=== PATIENT | female | born 1975 | race Caucasian/White ===

== ENCOUNTER → 2017-01-26 | Outpatient (CLI) | payer OTHER ==
[~2017-01-26] MED LIST: CHOL200024 PO; ESCI20TA10 PO; GABA300C10 PO; HYDR-3240 PO; HYDR-3241 PO; MULT-224 PO; NAPR500T4 PO; PROTONIX; SIMV20TA3 PO; SIMV80TA3; VARE1TAB21 PO
[2017-01-26 15:19] LABS: HEMOGLOBIN 15.4 g/dL (11.7-16.4); WHITE BLOOD COUNT 11.1 x10^3/uL (3.4-10)
[2017-01-26 15:27] LABS: BLOOD UREA NITROGEN 12 mg/dL (7-18)
[2017-01-26 15:31] LABS: ASPARTATE AMINO TRANSFERASE 10 U/L (15-37)
== END ==
LOC: STAR 14:24
PROVIDERS: ATTEND Specialist
DX: Z01.818 Encounter for other preprocedural examination (principal)
CPT/HCPCS: 36415; 80053; 84703; 85025; 85610; 85730

== ENCOUNTER 2017-01-31 06:51 | Day surgery (SDC) | payer OTHER ==
[2017-01-26 14:49] VITALS: BP 124/80
[~2017-01-31] VITALS: Ht 162.6 cm; Wt 102.7 kg
[2017-01-31] MEDS ORDERED: LACTATED RINGERS 1,000 ML IV SCH (07:05)
[2017-01-31 07:06] VITALS: BP 124/80
[2017-01-31] MEDS ORDERED: LIDOCAINE 1%, 2ML ONE (07:11)
[2017-01-31] MEDS ORDERED: MIDAZOLAM 1 MG/ML, 2ML ONE ×2 (07:18→07:36)
[2017-01-31] MEDS ORDERED: FENTANYL PF 100 MCG/2ML ONE ×3 (07:18→08:50)
[2017-01-31] MEDS ORDERED: PROPOFOL 10 MG/ML, 20ML ONE ×2 (07:19→07:36)
[2017-01-31] MEDS ORDERED: CEFAZOLIN 1,000 MG ONE ×3 (07:20→07:36)
[2017-01-31] MEDS ORDERED: SODIUM CHLORIDE 0.9% PF 10ML ONE (07:20)
[2017-01-31] MEDS ORDERED: PHENYLEPHRINE 10 MG/ML ONE (07:22)
[2017-01-31] MEDS ORDERED: DEXAMETHASONE 4 MG/ML, 1ML ONE ×2 (07:22)
[2017-01-31] MEDS ORDERED: ONDANSETRON 2MG/ML, 2ML ONE ×3 (07:22→07:36)
[2017-01-31 07:29] LABS: HCG UR LOT HCG7030192
[2017-01-31] MEDS ORDERED: LIDOCAINE 1%, 2ML SQ PRN (07:30)
[2017-01-31] MEDS ORDERED: KETOROLAC 30 MG/1 ML ONE ×2 (07:36→07:53)
[2017-01-31] MEDS ORDERED: HYDROmorphone 1 MG/ML, 1ML ONE ×2 (07:36→08:03)
[2017-01-31] MEDS ORDERED: KETAMINE 10 MG/ML, 20ML ONE ×2 (07:36→07:49)
[2017-01-31 07:39] LABS: HCG UR OBC PASS
[2017-01-31] MEDS ORDERED: BUPIVACAINE/PF-EPI 0.25% 1:200K INFIL ONE (08:15)
[2017-01-31] MEDS ORDERED: ACETAMINOPHEN 325 MG TABLET PO PRN (08:30)
[2017-01-31] MEDS ORDERED: hydrALAzine 20 MG/ML, 1ML IV PRN (08:30)
[2017-01-31] MEDS ORDERED: ALBUTEROL SULFATE 2.5 MG/3 ML NPPB PRN (08:30)
[2017-01-31] MEDS ORDERED: LABETALOL 5MG/ML, 20ML IV PRN (08:30)
[2017-01-31] MEDS ORDERED: HYDROmorphone 1 MG/ML, 1ML IV PRN (08:30)
[2017-01-31] MEDS ORDERED: LORazepam 2 MG/ML, 1ML IVPush PRN (08:30)
[2017-01-31] MEDS ORDERED: MEPERIDINE/PF 25MG/0.5ML IVPush PRN (08:30)
[2017-01-31] MEDS ORDERED: OXYcodone 5 MG/5 ML ORAL.SOL UDC PO PRN (08:30)
[2017-01-31] MEDS ORDERED: PROMETHAZINE 25 MG/ML, 1ML IV PRN (08:30)
[2017-01-31] MEDS ORDERED: FENTANYL PF 100 MCG/2ML IV PRN (08:30)
[2017-01-31] MEDS ORDERED: ONDANSETRON 2MG/ML, 2ML IVPush PRN (08:30)
[2017-01-31] MEDS ORDERED: BUPIVACAINE/PF 0.25% ONE (08:41)
[2017-01-31] MEDS ORDERED: ACETAMINOPHEN 650 MG/20.3 ML UDC ONE (08:50)
[2017-01-31] MEDS ORDERED: OXYcodone 5 MG/5 ML ORAL.SOL UDC ONE (08:51)
== END 2017-01-31 10:25 ==
LOC: OUT 06:51
PROVIDERS: ATTEND Specialist
DX: D07.2 Carcinoma in situ of vagina (principal); D06.9 Carcinoma in situ of cervix, unspecified; G43.909 Migraine, unspecified, not intractable, without status migrainosus
CPT/HCPCS: 36415; 56620; 57520; 81025; 86850; 86900; 88305; J0690; J1100; J1170; J1885; J2250; J2370; J2405; J2704; J3010; J3490; J7120

== ENCOUNTER → 2017-06-15 | Outpatient (CLI) | payer OTHER ==
[~2017-06-15] MED LIST changes: +NAPR-685 PO; -NAPR500T4 PO
== END | disposition home or self-care (01) ==
LOC: RAD 08:43
PROVIDERS: ATTEND Nurse Practitioner Primary Care
DX: R10.9 Unspecified abdominal pain (principal); R53.83 Other fatigue; E55.9 Vitamin D deficiency, unspecified; R79.9 Abnormal finding of blood chemistry, unspecified; F06.31 Mood disorder due to known physiological condition with depressive features; J06.0 Acute laryngopharyngitis; R42 Dizziness and giddiness; R20.2 Paresthesia of skin; K21.9 Gastro-esophageal reflux disease without esophagitis; Z79.899 Other long term (current) drug therapy; Z90.49 Acquired absence of other specified parts of digestive tract; Z72.0 Tobacco use
CPT/HCPCS: 76700

== ENCOUNTER 2018-09-07 07:14 | Outpatient (CLI) | payer OTHER ==
[~2018-09-07 07:14] MED LIST changes: -MULT-224 PO; +MULT-642 PO; +SIMV80TA18; -SIMV80TA3
[2018-09-07 07:42] LABS: BASOPHILS # (AUTO) 0.02 x10^3/uL (0-0.1); BASOPHILS % (AUTO) 0 % (0-1); EOSINOPHILS # (AUTO) 0.02 x10^3/uL (0-0.4); EOSINOPHILS % (AUTO) 0 % (1-7); LYMPHOCYTES # (AUTO) 1.66 x10^3/uL (1-3.4); LYMPHOCYTES % (AUTO) 17 % (22-44); MD NO; MEAN CORPUSCULAR HEMOGLOBIN 32.6 pg (27.0-34.8); MEAN CORPUSCULAR HGB CONC 33.2 g/dL (32.4-35.8); MEAN CORPUSCULAR VOLUME 98.1 fL (80-100); MEAN PLATELET VOLUME 9.1 fL (7.4-10.4); MONOCYTES # (AUTO) 0.39 x10^3/uL (0.2-0.8); MONOCYTES % (AUTO) 4 % (2-9); NEUTROPHILS # (AUTO) 7.55 x10^3/uL (1.8-6.8); NEUTROPHILS % (AUTO) 78 % (42-75); PLATELET COUNT 195 x10^3/uL (130-400); RED BLOOD COUNT 4.93 x10^6/uL (3.82-5.3); RED CELL DISTRIBUTION WIDTH 13.1 % (9.6-15.2)
[2018-09-07 07:50] LABS: MICROSCOPIC INDICATED
[2018-09-07 07:51] LABS: CULTURE INDICATED? YES
[2018-09-07 07:56] LABS: ANION GAP 8 mmol/L (5-15); CALCIUM 9.2 mg/dL (8.5-10.1); CHLORIDE 110 mmol/L (98-107); CHOLESTEROL, TOTAL 261 mg/dL (140-239); TRIGLYCERIDES 105 mg/dL (50-200); VLDL CHOLESTEROL 21 mg/dL (0-25)
[2018-09-07 07:59] LABS: HEMOGLOBIN A1C 5.2 % (4.2-6.3)
[2018-09-07 08:22] LABS: ALANINE AMINOTRANSFERASE 20 U/L (12-78); ALKALINE PHOSPHATASE 112 U/L (45-117); BILIRUBIN,TOTAL 0.6 mg/dL (0.2-1.0); CHOL/HDL RATIO 5.9; CREATININE 0.84 mg/dL (0.55-1.02); FOLATE LEVEL 16.9 ng/mL (3.1-17.5); FREE T4 (FREE THYROXINE) 0.97 ng/dL (0.76-1.46); HDL CHOL % 17 % (28-40); HDL CHOLESTEROL (DIRECT) 44 mg/dL (40-60); LDL CHOLESTEROL,CALCULATED 196 mg/dL (54-169); LDL/HDL RATIO 4.5 (0.5-3.0); TOTAL PROTEIN 7.8 g/dL (6.4-8.2)
== END 2018-09-07 23:59 | disposition home or self-care (01) ==
LOC: LAB 07:14
PROVIDERS: ATTEND Nurse Practitioner Primary Care
DX: Z13.220 Encounter for screening for lipoid disorders (principal); E78.5 Hyperlipidemia, unspecified; E55.9 Vitamin D deficiency, unspecified; R53.83 Other fatigue; R79.9 Abnormal finding of blood chemistry, unspecified; F06.31 Mood disorder due to known physiological condition with depressive features; Z72.0 Tobacco use; Z79.899 Other long term (current) drug therapy
CPT/HCPCS: 36415; 80053; 80061; 81001; 82306; 82607; 82746; 83036; 84207; 84425; 84439; 84443; 84481; 85025; 86376; 86800; 87077; 87086; 87186

== ENCOUNTER 2019-02-09 07:25 | Outpatient (CLI) | payer OTHER ==
[2019-02-09 08:00] LABS: MICROSCOPIC NOT IND
[2019-02-09 08:02] LABS: ALBUMIN 3.6 g/dL (3.4-5.0); ANION GAP 1 mmol/L (5-15); CALCIUM 8.7 mg/dL (8.5-10.1); CHLORIDE 110 mmol/L (98-107)
[2019-02-09 08:04] LABS: CULTURE INDICATED? NO
[2019-02-09 08:28] LABS: ALANINE AMINOTRANSFERASE 27 U/L (12-78); ALKALINE PHOSPHATASE 97 U/L (45-117); BILIRUBIN,TOTAL 0.4 mg/dL (0.2-1.0); CHOL/HDL RATIO 3.9; CHOLESTEROL, TOTAL 167 mg/dL (140-239); CREATININE 0.72 mg/dL (0.55-1.02); FOLATE LEVEL 16.3 ng/mL (3.1-17.5); HDL CHOL % 26 % (28-40); HDL CHOLESTEROL (DIRECT) 43 mg/dL (40-60); LDL CHOLESTEROL,CALCULATED 104 mg/dL (54-169); LDL/HDL RATIO 2.4 (0.5-3.0); TOTAL PROTEIN 7.1 g/dL (6.4-8.2); TRIGLYCERIDES 98 mg/dL (50-200); VLDL CHOLESTEROL 20 mg/dL (0-25)
== END 2019-02-09 23:59 | disposition home or self-care (01) ==
LOC: LAB 07:25
PROVIDERS: ATTEND Nurse Practitioner Primary Care
DX: R53.83 Other fatigue (principal); E55.9 Vitamin D deficiency, unspecified; E78.5 Hyperlipidemia, unspecified; R79.9 Abnormal finding of blood chemistry, unspecified; F06.31 Mood disorder due to known physiological condition with depressive features; Z79.899 Other long term (current) drug therapy
CPT/HCPCS: 36415; 80053; 80061; 81003; 82306; 82607; 82746; 84207; 84425

== ENCOUNTER 2019-03-30 15:44 | Observation (INO) | payer OTHER ==
[~2019-03-30] VITALS: Ht 162.6 cm; Wt 84.3 kg
[~2019-03-30 15:44] MED LIST changes: +SIMV20TA19 PO; -SIMV20TA3 PO
--- NOTE | 2019-03-30 16:28 | NUR ---
PT HAS CO DIZZYNES AND MIGRAINE THAT STARTED LAST NIGHT. PT DENIES ANY NEW STRESS. DENIES, CP, SOB, NO N/V/D. NOT IT ANY DITRESS. WAITING FOR FURTHER ORDERS.
[2019-03-30] MEDS ORDERED: DIPHENHYDRAMINE 50 MG/ML, 1ML ONE (17:15)
[2019-03-30] MEDS ORDERED: METOCLOPRAMIDE 5 MG/ML, 2ML ONE (17:16)
[2019-03-30] MEDS ORDERED: DIPHENHYDRAMINE 50 MG/ML, 1ML IVPush ONE (17:30)
[2019-03-30] MEDS ORDERED: METOCLOPRAMIDE 5 MG/ML, 2ML IVPush ONE (17:30)
[2019-03-30 17:36] LABS: BASOPHILS # (AUTO) 0.02 x10^3/uL (0-0.1); BASOPHILS % (AUTO) 0 % (0-1); EOSINOPHILS # (AUTO) 0.17 x10^3/uL (0-0.4); EOSINOPHILS % (AUTO) 2 % (1-7); LYMPHOCYTES # (AUTO) 3.15 x10^3/uL (1-3.4); LYMPHOCYTES % (AUTO) 32 % (22-44); MD NO; MEAN CORPUSCULAR HEMOGLOBIN 32.9 pg (27.0-34.8); MEAN CORPUSCULAR VOLUME 96.6 fL (80-100); MEAN PLATELET VOLUME 9.4 fL (7.4-10.4); MONOCYTES # (AUTO) 0.52 x10^3/uL (0.2-0.8); MONOCYTES % (AUTO) 5 % (2-9); NEUTROPHILS # (AUTO) 6.02 x10^3/uL (1.8-6.8); NEUTROPHILS % (AUTO) 61 % (42-75); PLATELET COUNT 208 x10^3/uL (130-400); RED BLOOD COUNT 4.63 x10^6/uL (3.82-5.3); RED CELL DISTRIBUTION WIDTH 13.5 % (9.6-15.2)
[2019-03-30 17:45] LABS: ALBUMIN 3.9 g/dL (3.4-5.0); ANION GAP 5 mmol/L (5-15); CALCIUM 9.2 mg/dL (8.5-10.1); CHLORIDE 108 mmol/L (98-107)
[2019-03-30 17:50] LABS: ALANINE AMINOTRANSFERASE 21 U/L (12-78); ALKALINE PHOSPHATASE 108 U/L (45-117); BILIRUBIN,TOTAL 0.5 mg/dL (0.2-1.0); CREATININE 0.74 mg/dL (0.55-1.02); TOTAL PROTEIN 7.4 g/dL (6.4-8.2); TROPONIN I < 0.015 ng/mL (0.000-0.045)
--- NOTE | 2019-03-30 18:10 | NUR ---
PT BACK FROM IMAGING.
--- NOTE | 2019-03-30 19:00 | NUR ---
AT BEDSIDE DISCUSSING POC FOR ADMIT. PT WAS REQUESTING TO WALK OUTSIDE TO SMOKE, PT EDUCATED THAT PT ARE NOT ALLOWED TO LEAVE THE ED W IV IN PLACE. PT AGREES. VS STABLE. NO NEEDS AT THIS TIME
--- NOTE | 2019-03-30 19:52 | NUR ---
REPORT TO YAZ
--- NOTE | 2019-03-30 20:54 | NUR ---
PT BEING TRANSFERRED TO FLOOR. VS STABLE.
[2019-03-30 21:20] VITALS: BP 105/65
[2019-03-30 21:38] VITALS: BP 105/65
[2019-03-30] MEDS: SODIUM CHLORIDE 0.9% 1,000 ML IV SCH (21:38)
[2019-03-30] MEDS ORDERED: POLYETHYLENE GLYCOL 17 GM PACKET PO PRN (22:00)
[2019-03-30] MEDS ORDERED: ACETAMINOPHEN 325 MG TABLET PO PRN (22:00)
[2019-03-30] MEDS ORDERED: HYDROcodone/APAP 5/325 TABLET PO PRN (22:00)
[2019-03-30] MEDS ORDERED: PROMETHAZINE 25 MG/ML, 1ML IM PRN (22:00)
[2019-03-30] MEDS ORDERED: DOCUSATE 100 MG CAPSULE PO PRN (22:00)
[2019-03-30] MEDS ORDERED: ASA/APAP/ CAFFEINE TABLET PO PRN (22:00)
[2019-03-30] MEDS ORDERED: morphine SULFATE 10 MG/ML, 1ML IVPush PRN (22:00)
[2019-03-30] MEDS ORDERED: hydrALAzine 20 MG/ML, 1ML IVPush PRN (22:00)
[2019-03-30] MEDS ORDERED: ONDANSETRON 2MG/ML, 2ML IVPush PRN (22:00)
[2019-03-30] MEDS ORDERED: BISACODYL 10 MG SUPP PR PRN (22:00)
[2019-03-30] MEDS ORDERED: ONDANSETRON ODT 4 MG PO PRN (22:00)
[2019-03-30 22:13] LABS: FREE T4 (FREE THYROXINE) 0.97 ng/dL (0.76-1.46)
[2019-03-30] MEDS: HEPARIN 5,000 UNITS/ML, 1ML SQ SCH (22:28)
[2019-03-30] MEDS: ASPIRIN 325 MG TABLET EC PO SCH (22:29)
[2019-03-30] MEDS ORDERED: SIMVASTATIN 20 MG TABLET PO SCH (22:30)
[2019-03-30] MEDS ORDERED: NICOTINE 14MG/24 HR PATCH.TD24 TD SCH (23:00)
[2019-03-31 01:00] VITALS: BP 102/60
[2019-03-31 03:59] LABS: MICROSCOPIC NOT IND
[2019-03-31 04:03] LABS: CULTURE INDICATED? NO
[2019-03-31 05:16] LABS: BASOPHILS # (AUTO) 0.04 x10^3/uL (0-0.1); BASOPHILS % (AUTO) 1 % (0-1); EOSINOPHILS # (AUTO) 0.15 x10^3/uL (0-0.4); EOSINOPHILS % (AUTO) 2 % (1-7); LYMPHOCYTES # (AUTO) 3.24 x10^3/uL (1-3.4); LYMPHOCYTES % (AUTO) 35 % (22-44); MD NO; MEAN CORPUSCULAR HEMOGLOBIN 32.9 pg (27.0-34.8); MEAN CORPUSCULAR HGB CONC 33.5 g/dL (32.4-35.8); MEAN PLATELET VOLUME 9.9 fL (7.4-10.4); MONOCYTES # (AUTO) 0.71 x10^3/uL (0.2-0.8); MONOCYTES % (AUTO) 8 % (2-9); NEUTROPHILS # (AUTO) 5.15 x10^3/uL (1.8-6.8); NEUTROPHILS % (AUTO) 55 % (42-75); PLATELET COUNT 187 x10^3/uL (130-400); RED BLOOD COUNT 4.26 x10^6/uL (3.82-5.3); RED CELL DISTRIBUTION WIDTH 13.2 % (9.6-15.2)
[2019-03-31 05:24] LABS: ALBUMIN 3.2 g/dL (3.4-5.0); CHLORIDE 112 mmol/L (98-107)
[2019-03-31 05:30] LABS: ALANINE AMINOTRANSFERASE 17 U/L (12-78); ALKALINE PHOSPHATASE 90 U/L (45-117); ANION GAP 4 mmol/L (5-15); BILIRUBIN,TOTAL 0.2 mg/dL (0.2-1.0); CALCIUM 8.3 mg/dL (8.5-10.1); CHOL/HDL RATIO 5.6; CHOLESTEROL, TOTAL 202 mg/dL (140-239); CREATININE 0.63 mg/dL (0.55-1.02); HDL CHOL % 18 % (28-40); HDL CHOLESTEROL (DIRECT) 36 mg/dL (40-60); LDL CHOLESTEROL,CALCULATED 136 mg/dL (54-169); LDL/HDL RATIO 3.8 (0.5-3.0); TOTAL PROTEIN 6.1 g/dL (6.4-8.2); TRIGLYCERIDES 152 mg/dL (50-200); VLDL CHOLESTEROL 30 mg/dL (0-25)
[2019-03-31] MEDS: ASPIRIN 325 MG TABLET EC PO SCH (05:41)
[2019-03-31] MEDS: HEPARIN 5,000 UNITS/ML, 1ML SQ SCH ×2 (05:41→14:01)
[2019-03-31] MEDS: GABAPENTIN 300 MG CAPSULE PO SCH ×2 (07:39→15:25)
[2019-03-31] MEDS: SODIUM CHLORIDE 0.9% 1,000 ML IV SCH (07:39)
[2019-03-31 07:54] VITALS: BP 101/69
[2019-03-31] MEDS ORDERED: MULTIVITAMIN 1 TABLET PO SCH (09:00)
[2019-03-31] MEDS ORDERED: CHOLECALCIFEROL 1,000 UNIT TABLET PO SCH (09:00)
[2019-03-31] MEDS ORDERED: ESCITALOPRAM 10MG TABLET PO SCH (09:00)
[2019-03-31 14:08] VITALS: BP 90/60
[2019-03-31] MEDS ORDERED: ASPI1TAB61 PO (15:28)
[2019-03-31] MEDS ORDERED: ASPI-515 PO (15:28)
[2019-03-31] MEDS ORDERED: NICO-486 TD (15:28)
== END 2019-03-31 16:33 | disposition home or self-care (01) ==
LOC: ED 19:21 → EDIP 19:25 → INTOOBSV 19:25 → 4WST 21:01
PROVIDERS: ADMIT Internal Medicine; ATTEND Internal Medicine
DX: G45.9 Transient cerebral ischemic attack, unspecified (principal); E78.5 Hyperlipidemia, unspecified; F32.9 Major depressive disorder, single episode, unspecified; G43.909 Migraine, unspecified, not intractable, without status migrainosus; R42 Dizziness and giddiness; F17.200 Nicotine dependence, unspecified, uncomplicated; E78.00 Pure hypercholesterolemia, unspecified; Z79.899 Other long term (current) drug therapy; Z86.008 Personal history of in-situ neoplasm of other site
CPT/HCPCS: 36415; 70551; 80053; 80061; 81003; 82962; 83036; 83735; 84439; 84443; 84484; 85025; 92610; 93005; 93306; 93880; 96361; 96372; 96374; 96375; 97162; 97165; 99284; G0378; J1200; J1644; J2765; J7030; 99285

== ENCOUNTER 2019-04-24 07:09 | Outpatient (CLI) | payer OTHER ==
[~2019-04-24 07:09] MED LIST changes: +ASPI-515 PO; +ASPI1TAB61 PO; +NICO-486 TD
[2019-04-24 07:28] LABS: BASOPHILS # (AUTO) 0.03 x10^3/uL (0-0.1); BASOPHILS % (AUTO) 0 % (0-1); EOSINOPHILS # (AUTO) 0.08 x10^3/uL (0-0.4); EOSINOPHILS % (AUTO) 1 % (1-7); LYMPHOCYTES # (AUTO) 2.26 x10^3/uL (1-3.4); LYMPHOCYTES % (AUTO) 24 % (22-44); MD NO; MEAN CORPUSCULAR HEMOGLOBIN 32.7 pg (27.0-34.8); MEAN CORPUSCULAR HGB CONC 33.2 g/dL (32.4-35.8); MEAN CORPUSCULAR VOLUME 98.3 fL (80-100); MEAN PLATELET VOLUME 9.1 fL (7.4-10.4); MONOCYTES # (AUTO) 0.34 x10^3/uL (0.2-0.8); MONOCYTES % (AUTO) 4 % (2-9); NEUTROPHILS # (AUTO) 6.91 x10^3/uL (1.8-6.8); NEUTROPHILS % (AUTO) 72 % (42-75); PLATELET COUNT 221 x10^3/uL (130-400); RED BLOOD COUNT 4.77 x10^6/uL (3.82-5.3); RED CELL DISTRIBUTION WIDTH 13.4 % (9.6-15.2)
[2019-04-24 07:37] LABS: ALBUMIN 3.7 g/dL (3.4-5.0); ANION GAP 5 mmol/L (5-15); CHLORIDE 108 mmol/L (98-107)
[2019-04-24 07:42] LABS: % IRON SATURATION 31 % (20-55); ALANINE AMINOTRANSFERASE 22 U/L (12-78); ALKALINE PHOSPHATASE 96 U/L (45-117); BILIRUBIN,TOTAL 0.5 mg/dL (0.2-1.0); CREATININE 0.73 mg/dL (0.55-1.02); IRON LEVEL 102 mcg/dL (50-170); TOTAL IRON BINDING CAPACITY 324 mcg/dL (250-450); TOTAL PROTEIN 7.2 g/dL (6.4-8.2); TRANSFERRIN 276 mg/dL (200-360)
== END 2019-04-24 23:59 | disposition home or self-care (01) ==
LOC: LAB 07:09
PROVIDERS: ATTEND Nurse Practitioner Primary Care
DX: Z13.220 Encounter for screening for lipoid disorders (principal); G93.0 Cerebral cysts; G43.909 Migraine, unspecified, not intractable, without status migrainosus; E55.9 Vitamin D deficiency, unspecified; E78.5 Hyperlipidemia, unspecified; R53.83 Other fatigue; R79.9 Abnormal finding of blood chemistry, unspecified; F06.31 Mood disorder due to known physiological condition with depressive features; Z72.0 Tobacco use; Z79.899 Other long term (current) drug therapy
CPT/HCPCS: 36415; 80053; 82652; 82728; 83540; 83550; 84100; 84146; 84466; 85025